=== PATIENT | female | born 1955 | race Caucasian/White ===

== ENCOUNTER 2017-07-22 07:29 | Inpatient (IN) | payer MEDICARE, OTHER, MEDICAID ==
[2017-07-22] MEDS ORDERED: Nitroglycerin 0.4 MG TAB (25 Tab Bottle) ONE (07:54)
[2017-07-22 08:29] LABS: #Basophils 0.2 thou/uL (0.0-0.2); #Eosinphils 0.1 thou/uL (0.0-0.7); #Lymphocytes 1.5 thou/uL (1.20-3.40); #Monocytes 0.3 thou/uL (0.11-0.59); #Neutrophils 6.4 thou/uL (1.40-6.50); %Basophils 2.2 % (0.0-1.0); %Eosinophils 1.3 % (0.0-10.0); %Lymphocytes 17.9 % (21.0-51.0); %Monocytes 3.8 % (0.0-10.0); %Neutrophils 74.8 % (42.0-75.0); Hemoglobin 15.4 g/dL (12.0-16.0); Mean Corpuscular HGB CONC 33.8 g/dL (32.0-36.0); Mean Corpuscular Hemoglobin 31.9 pg (27.0-31.0); Mean Corpuscular Volume 94.2 fl (81.0-99.0); Mean Platelet Volume 8.4 fL (7.4-10.4); Platelet Count 232 thou/uL (130-400); RBC Distribution Width 12.7 % (11.5-14.5); Red Blood Cell (RBC) Count 4.82 mill/uL (4.20-5.40); White Blood Cell (WBC) Count 8.6 thou/uL (4.8-10.8)
[2017-07-22 08:39] LABS: Prothrombin Time 13.3 SEC (12.0-14.7)
--- NOTE | 2017-07-22 08:41 | RAD ---
CHEST 1 VIEW: Date: 07/22/17 HISTORY: Emergency exam. COMPARISON: None. FINDINGS: Mild interstitial prominence in the lung bases. Heart size upper limits of normal. No pneumothorax. N o acute osseous abnormality. IMPRESSION: Mild pulmonary venous congestion. POS: [facility]
[2017-07-22 08:54] LABS: ALT (SGPT) 35 U/L (8-55); AST (SGOT) 25 U/L (5-34); Albumin 4.2 g/dL (3.4-4.8); Alkaline Phosphatase 73 U/L (40-150); Anion Gap 13 mmol/L (10-20); BUN (Urea Nitrogen) 10 mg/dL (9.8-20.1); Bilirubin, Total 0.5 mg/dL (0.2-1.2); Calc. Creatinine Clearance 0 mL/min (70-130); Calcium 9.1 mg/dL (7.8-10.44); Carbon Dioxide 23 mmol/L (23-31); Chloride 106 mmol/L (98-107); Estimated GFR-MDRD Greater than 90; Globulin 2.8 g/dL (2.4-3.5); Glucose 143 mg/dL (80-115); Magnesium 1.6 mg/dL (1.6-2.6); Potassium 3.6 mmol/L (3.5-5.1); Sodium 138 mmol/L (136-145)
[2017-07-22 08:59] LABS: CKMB 3.6 ng/mL (0-6.6)
[2017-07-22 09:01] LABS: Troponin I 0.414 ng/mL (< 0.028)
[2017-07-22] MEDS ORDERED: Enoxaparin Sodium 80 MG/0.8 ML SYRINGE ONE (09:18)
[2017-07-22] MEDS ORDERED: Nitroglycerin 0.4 MG TAB (25 Tab Bottle) PO PRN (11:11)
[2017-07-22] MEDS ORDERED: HYDROcodone/Acetaminophen 5/325 mg Tablet PO PRN ×2 (11:11→19:16)
--- NOTE | 2017-07-22 11:35 | HP ---
DATE OF ADMISSION: 07/22/2017 CHIEF COMPLAINT: Headache and jaw pain. HISTORY OF PRESENT ILLNESS: This is a 61-year-old white female with a known history of hypertension and history of chronic smoking. She presented with a complaint of headache and sinus like symptoms a ssociated with jaw pain, so she came to the ER and she noted to have normal EKG with some ST segment changes and had cardiac enzyme elevation to 0.414. Patient denies having any chest pain, no dizzines s, no sweating, no nausea, no vomiting, no diarrhea, and no constipation. She does mention that one of her grandchildren was sick and was having fever, but she noted no fever at home. Patient is a [facility] sm[facility], smokes 1 pack a day and she is trying to quit smoking because of the counseling from her daughter. She denies having any previous cardiac problems in the past. Because of her unusual pres entation and elevated troponin, Dr. Rosado was consulted from the ER. The patient is seen, she was jasper rt and oriented, did not appear to be in acute distress at this time. PAST MEDICAL HISTORY: 1. Hypertension. 2. COPD. PAST SURGICAL HISTORY: None. SOCIAL HISTORY: Patient does have a history of smoking, smokes 1 pack a day. No history of alcohol, no history of illicit drug use. FAMILY HISTORY: The patient is a foster child, but she does remember her mother has a history of vinayak g cancer and also with tuberculosis. REVIEW OF SYSTEMS: All 12 systems are reviewed with the patient thoroughly and found to be negative at this time. Systems reviewed HEENT, CVS, EXTRACTOR FILLER, and respiratory. The following complete review of s ystems was negative, unless otherwise mentioned in the HPI or below: Constitutional: Weight loss or gain, sense of well-being, ability to conduct usual activities, exerc ise tolerance. Skin/Breast: Rash, itching, changes in hair growth or loss, nail changes, breast lumps, tenderness, swelling, nipple discharge. Eyes: Vision, double vision, tearing, blind spots, pain. ENT/Mouth: Headaches (location, time of onset, duration, precipitating factors), vertigo, lightheade dness, injury. Vision, double vision, tearing, blind spots, pain, nose bleeding, colds, obstruction, discharge, dental difficulties, gingival bleeding, dentures, neck stiffness, pain, tenderness, masses in thyroid or other areas Cardiovascular: Precordial pain, substernal distress, palpitations, syncope, dyspnea on exertion, or thopnea, nocturnal paroxysmal dyspnea, edema, cyanosis, hypertension, heart murmurs, varicosities, ph lebitis, claudication. Respiratory: Pain, shortness of breath, wheezing, stridor, cough, hemoptysis, fever or night sweats Gastrointestinal: Poor appetite, dysphagia, indigestion, abdominal pain, heartburn, eructation, naus ea, vomiting, hematemesis, jaundice, constipation, or diarrhea, abnormal stools (mitra-colored, tarry, bloody, greasy, foul smelling), flatulence, hemorrhoids, recent changes in bowel habits. Genitourinary: Urgency, frequency, dysuria, nocturia, hematuria, polyuria, oliguria, unusual (or constanza nge in) color of urine, stones, hesitancy, change in size of stream, dribbling, acute retention or in continence, libido, potency. Musculoskeletal: Pain, swelling, redness or heat of muscles or joints, limitation, of motion, muscul ar weakness, atrophy, cramps. Neurologic/Psychiatric: Convulsions, paralyses, tremor, incoordination, paraesthesias, difficulties with memory of speech, sensory or motor disturbances, or muscular coordination (ataxia, tremor), emot ional problems, anxiety, depression, previous psychiatric care, unusual perceptions, hallucinations. Allergy/Immunologic: Skin rash, anemia, bleeding tendency, polydipsia, polyuria, intolerance to heat or cold. HOME MEDICATIONS: None. ALLERGIES: None. PHYSICAL EXAMINATION: VITAL SIGNS: Blood pressures are 150/88, respiratory rate 18, saturation is 98%. GENERAL: The patient is moderately built and moderately nourished. She does not appear to be in acu te distress. CARDIOVASCULAR: S1, S2 normal. No murmurs, no rubs, no gallops. LUNGS: Bilateral air entry was equal. No wheezing, no crackles. ABDOMEN: Soft, nontender, no guarding, no rebound tenderness. Bowel sounds normal. MUSCULOSKELETAL: No calf tenderness. No pedal edema. No joint tenderness, no joint swelling. SKIN: No cyanosis, no erythema, no rash, no pallor. CENTRAL NERVOUS SYSTEM: Cranial nerve examination II-XII intact. No focal deficits are noted. LYMPH: No evidence of any lymph nodes noted in the axillary node and cervical. NECK: No thyromegaly, no JVD. LABORATORY DATA AND IMAGING DATA: 1. WBC 8.6, hemoglobin 15.4, hematocrit is 45.4. 2. Sodium 130, potassium 3.6, chloride 106, bicarbonate 23, BUN 10, creatinine 0.66. 3. Troponin 0.414. 4. Chest x-ray was unremarkable. EKG was seen by me showing evidence of mild ST segment changes, bu t no classic ST segment elevations or depression. ASSESSMENT: 1. Acute coronary syndrome. 2. Non-ST elevation myocardial infarction. 3. Acute sinusitis, frontal. 4. Chronic smoker with known history of chronic obstructive pulmonary disease. PLAN: 1. Plan is to admit this patient and then closely monitor with serial troponins and Dr. Rosado has bee n consulted. We will follow with their recommendations. Plan to do a 2D echo to look for any eviden ce of wall motion abnormality. If troponins continue to trend down, probably we will do a nuclear st ress test tomorrow to rule out cardiac risk. 2. The patient has evidence of acute sinusitis with tenderness of her frontal sinuses. We will star t the patient on Augmentin 875 mg p.o. b.i.d. and Flonase on both nostrils. 3. Patient has a history of smoking. We will do a nicotine patch and job placement counselor the patient. I spent more than 15-20 minutes with the patient to quit smoking and patient agreed to take nicotine patch. 4. No evidence of any chronic obstructive pulmonary disease exacerbation noted. 5. Deep venous thrombosis prophylaxis with Lovenox 40 mg daily. I spent 70 minutes of this patient.
[2017-07-22 13:04] LABS: Troponin I 0.826 ng/mL (< 0.028)
[2017-07-22 14:56] LABS: Critical Call Chem Troponin I RESULT DECREASING; Troponin I 0.753 ng/mL (< 0.028)
[2017-07-22 16:09] VITALS: BMI 31.2
[2017-07-22] MEDS: Nicotine 14 MG PATCH TD SCH (18:12)
[2017-07-22] MEDS: Docusate 100 MG CAP PO SCH (20:50)
[2017-07-22] MEDS: Carvedilol 3.125 MG TAB PO SCH (20:51)
[2017-07-22] MEDS: Simvastatin 40 MG TAB PO SCH (20:51)
[2017-07-22] MEDS: Cefdinir 300 MG CAP PO SCH (20:51)
[2017-07-22] MEDS: traZODone HCl 150 MG TAB PO SCH (20:51)
[2017-07-22] MEDS: Famotidine/PF 20 mg/2ml Vial SLOW IVP SCH (20:51)
[2017-07-22] MEDS ORDERED: Amoxicillin/Potassium Clav 875 MG TAB PO SCH ×2 (21:00)
[2017-07-22] MEDS ORDERED: Lisinopril/Hydrochlorothiazide 20/25 mg Tablet PO SCH (21:00)
[2017-07-22] MEDS ORDERED: Ondansetron ODT 4 MG TAB PO PRN ×2 (21:15→21:17)
[2017-07-22] MEDS ORDERED: Ondansetron HCl/PF 4 MG/2 ML Vial IVP PRN ×2 (21:15→21:17)
[2017-07-22] MEDS ORDERED: ALPRAZolam 0.25 MG TAB PO PRN (21:17)
[2017-07-22] MEDS: Ibuprofen 200 MG TAB PO PRN (21:44)
--- NOTE | 2017-07-23 01:18 | CON ---
DATE OF CONSULTATION: 07/22/2017 PRIMARY CARE PHYSICIAN: Dr. Thompson. PRIMARY FIELD INSPECTOR: Desirae Rosado M.D. REFERRING PHYSICIAN: Rogelio Hull MD REASON FOR CARDIOLOGY CONSULTATION: Indeterminate troponin level and severe shortness of breath. HISTORY OF PRESENT ILLNESS: Ms. Spring is a 61-year-old female with a significant history of COPD secondary to smoking. The patient has had cold and sinus like symptoms for 2 days prior to this admission. Yesterday, she noticed that her breathing was more short-winded with slight lightheadedness. Her shortness of breath became worse towards the night. She could not even sleep on the recliner. This morning around 7:00, she and her family decided to present to the emergency department by car; however, she could not even walk to across the [place] due to dyspnea on exertion in very short distance. They decided to call EMS and the patient was transferred to [place] emergency department for further evaluation and treatment. Prior to this admission, she has some mild dyspnea on exertion with movement. However, she does not require home oxygen or any inhaler. During the initial Cardiology consult assessment, patient has complained of really short-winded; when she went to the bathroom, she almost passing out due to the shortness of breath. She also complained of noticeable discomfort to sternal area, which increased with deep breath. She also complained about chronic cough. She has not eaten well for a week because of the severe short-winded when she is eating. She has echocardiogram done in 11/2016 which shows EF of 60-65%, normal left ventricle structure and function suggests of grade I diastolic dysfunction. PAST MEDICAL HISTORY: 1. Chronic obstructive pulmonary disease. 2. Hypertension. 3. Right breast cancer with lumpectomy in 2015 with 6 weeks of radiation. 4. Rheumatoid arthritis in the right bilateral knee and hips. 5. Sciatic nerve. 6. Hepatitis A. 7. PTSD. 8. Hyperlipidemia. 9. Systolic murmur. 10. Diastolic dysfunction. 11. Urge incontinence. 12. GERD. PAST SURGICAL HISTORY: Again, right lumpectomy due to the right breast cancer in 2005. FAMILY HISTORY: She is a foster child at the age 5 or 6; however, she remembers that her mother has history of lung cancer and tuberculosis and also her great grandmother due to complications of diabetes. SOCIAL HISTORY: Patient is . Patient has a partner who lives with her , who is also a smoker. She has 2 children, her son is in the alive and well. Her daughter has a history of murmur. She is retired. She is disabled. She enjoys 3 cups of coffees a day and a glass of ice tea through the day. She smokes one pack a day until last night. She denied alcohol or illicit drug abuse. Today, she reports that she is going to quit smoking. ALLERGIES: She is allergic to PENICILLIN, CODEINE, ADHESIVE TAPE AND IVORY SOAP. HOME MEDICATIONS: Lisinopril/hydrochlorothiazide 20/25 mg 1 tablet once a day, Colace 100 mg daily as needed, vitamin D3 of 5000 units daily, minocycline 50 mg half a tablet to one tablet daily, Xanax 0.5 mg half tablet to one tablet twice a day, BuSpar 10 mg once a day, simvastatin 80 mg once a day, raloxifene 60 mg once a day, trazodone 150 mg once a day at night, Celexa 100 mg once a day. REVIEW OF SYSTEMS: The following complete review of systems was negative, unless otherwise mentioned in the HPI or below. Constitutional: Weight loss or gain, sense of wellbeing, ability to conduct usual activities, exercise tolerance. She started having shortness when short-winded about 2 days ago. Skin: Rash, itching, change in hair growth or loss, nail changes, breast lumps , tenderness, swelling, nipple discharge. Eyes: Vision change, double vision, tearing, blind spots, or pain. HEENT: Headache, vertigo, lightheadedness, nose bleeding, cold, obstruction, discharge. She wears total dentures, but denied gingival bleeding, neck stiffness, pain, tenderness, mass in thyroid or other areas. Cardiovascular: Precordial pain, substernal distress, palpitations, syncope, dyspnea on exertion, orthopnea, nocturnal dyspnea until 2 days ago. Negative for edema, cyanosis, claudication. Respiratory: Pain, wheezing, stridor, hemoptysis, fever or night sweats. Gastrointestinal: Positive for poor appetite due to severe shortness of breath , but negative for dysphagia, indigestion, abdominal pain, heartburn, eructation , nausea, vomiting, hematemesis, jaundice, constipation, or diarrhea, blood in stool. Genitourinary: Urgency, frequency, dysuria, nocturia, hematuria, polyuria, oliguria, unusual color of urine. Musculoskeletal: Pain, swelling, redness or heat of muscle or joint, limitation of motion, muscular weakness, atrophy, cramps. She is complaining of backache when she is leaning forward to the desk. Neurologic: Seizure conversion paralysis, tremor, incoordination, difficulty with memory of speech, sensory or motor disturbance or muscular coordination. Psychiatric: Emotional problem, anxiety, depression, previous psychiatric care, unusual perceptions, hallucinations. PHYSICAL EXAMINATION: VITAL SIGNS: Blood pressure 150/74, respiratory rate 22; heart rate 80, is in sinus rhythm. O2 satting 96% with 2 liters nasal cannula. GENERAL: Well-developed, well-nourished, in acute distress due to the severe shortness of breath. HEAD: Normocephalic, atraumatic. EYES: Extraocular muscle movement intact. ENT: Oral and nasal mucosa are moist without lesion. NECK: No JVD. Neck is supple and normal range of motion. LUNGS: Very tight bilaterally, but no wheezing, rales or rhonchi noted. CARDIOVASCULAR: Regular rate and rhythm, normal S1, S2. There are no S3 or S4. Unfortunately, I could not hear well murmurs, heaves, thrills, bruits or rubs due to severe heavy breathing. EXTREMITIES: There are 1+ pulses in the dorsal pedis and popliteal 2+ in bilateral posterior tibial present. Carotid pulse is present without bruit or thrill. No edema in the bilateral lower extremities. ABDOMEN: Soft and nontender or mass to palpate, nondistended. Bowel sounds are present. MUSCULOSKELETAL: Able to move all extremities. No calf tenderness. SKIN: Warm and dry. No skin rash, lesion or bruits noted. NEUROLOGIC: Alert, oriented x4, awake. Normal affect. Nonfocal. PSYCHIATRIC: Mood and affect are normal. Patient's 12-lead EKG shows sinus rhythm with heart rate of 91. Q-waves in lead 2, lead 3, and AVF is more than 2 mm, but not 3 mm. Chest x-ray shows mild pulmonary venous congestion. LABORATORY DATA: WBC 8.6, hemoglobin 15.4, hematocrit of 45.4, platelets 232. INR 1.0. Sodium 138, potassium 3.6, BUN 10, creatinine 0.66, glucose 143, magnesium 1.6, AST 25, ALT 35. CK-MB is 3.6. Troponin 0.414, 0.826, 0.753. BNP is 47. Her UA showed normal. ASSESSMENT AND PLAN: 1. Elevated troponin level which is possibly from severe dyspnea on exertion with chronic cough; however, due to the history of hypertension and current smoker, we would like to order a stress test to rule out any coronary artery disease. However, due to severe dyspnea of exertion, we would like to wait until her respiratory condition is stable. At this moment, the patient does not have any cardiac related symptoms such as numbness to the left upper extremity, nausea, diaphoresis. We would like to continue to monitor on the telemetry. Patient is on aspirin 325 mg, carvedilol 3.125 mg twice a day, Lovenox 40 mg subcutaneous and nitroglycerin as needed. 2. Acute chronic obstructive pulmonary disease exacerbation. Patient is on nebulizers; however, she is not on any steroids at this moment. Steroid can be beneficial for this patient for worsening shortness of breath. 3. Acute frontal sinusitis. Patient is on Omnicef 300 twice a day which is managed by her primary care doctor. 4. Current smoker. She is on a nicotine patch and she states that she will stop smoking. 5. Hyperlipidemia. Simvastatin 80 mg once a day will be started from [facility]. 4. Hypertension. I would like to start lisinopril/hydrochlorothiazide once a day for this patient. Thank you very much for allowing the Cardiology Service to participate in the care of this patient. We will follow along with the patient care team and make further evaluation as appropriate. SUMI
--- NOTE | 2017-07-23 02:10 | CON ---
DATE OF ADMISSION: 07/22/2017 DATE OF CONSULTATION: 07/22/2017 INDICATION FOR CONSULTATION: A 61-year-old female with abnormal cardiac enzymes. HISTORY OF PRESENT ILLNESS: This very unfortunate 61-year-old female who has had a long history of t obacco abuse, presented to the emergency room complaining of increasing coughing for the last couple of days. She has also had some fevers. During the evaluation, she was noted to have elevated cardia c enzymes. She denied any chest pain. She complained of lightheadedness. She was unable to even wa lk across the room due to significant shortness of breath. She has had an echocardiogram performed i n 11/2016 with a normal ejection fraction and no evidence of myocardial infarctions previously. Her cardiac enzymes at this time are still indeterminate and may be due to the severe significant shortne ss of breath as well as continued coughing. She does have a history of some diastolic dysfunction; h owever, but has chronic obstructive pulmonary disease. She also has a history of hypertension with h yperlipidemia obviously giving her risk factors for coronary artery disease. She also has obstructiv e sleep apnea. At this time, we will continue to monitor the cardiac enzymes. Should they continue to trend upwards or should she develop significant EKG changes, then we will consider a cardiac carisa terization, but at this time she is not a candidate to undergo the procedure due to severe coughing a nd overall ill situation at this time. Certainly, the elevated cardiac enzymes could be due to some hypoxia, also associated with severe coughing. She has been strongly advised to stop smoking altoget her. For the remainder of the history and physical, review of systems, past medical history and soci al history, please refer to the notes already dictated by my nurse practitioner, Kelin. IMPRESSION: 1. Acute bronchitis or acute chronic obstructive pulmonary disease exacerbation with increased cough ing and elevated cardiac enzymes. We will continue to follow this very carefully. We will try to ge t her coughing and acute respiratory status back down to her baseline. 2. Long history of tobacco abuse. She has been advised already to stop smoking. 3. Abnormal cardiac enzymes, which most likely is secondary to the continued coughing as well as ashley e tachycardia. This will be monitored very carefully. Should they continue upwards, then we may nee d to consider further evaluation. 4. Hyperlipidemia. She will need to be placed on statin medications. 5. Hypertension. This is under reasonable control at this time. We will be more than happy to cont inue to follow the patient with you during her hospital course.
[2017-07-23] MEDS: Diabetic Tussin 200 MG/10 ML UDCUP PO PRN ×3 (04:15→21:39)
[2017-07-23 05:35] LABS: #Eosinphils 0.2 thou/uL (0.0-0.7); #Lymphocytes 1.8 thou/uL (1.20-3.40); #Monocytes 0.8 thou/uL (0.11-0.59); #Neutrophils 5.8 thou/uL (1.40-6.50); %Basophils 0.3 % (0.0-1.0); %Lymphocytes 21.1 % (21.0-51.0); %Monocytes 9.5 % (0.0-10.0); %Neutrophils 67.1 % (42.0-75.0); Hemoglobin 15.3 g/dL (12.0-16.0); Mean Corpuscular HGB CONC 33.5 g/dL (32.0-36.0); Mean Corpuscular Hemoglobin 31.8 pg (27.0-31.0); Mean Corpuscular Volume 94.9 fl (81.0-99.0); Mean Platelet Volume 8.2 fL (7.4-10.4); Platelet Count 228 thou/uL (130-400); RBC Distribution Width 12.7 % (11.5-14.5); Red Blood Cell (RBC) Count 4.83 mill/uL (4.20-5.40); White Blood Cell (WBC) Count 8.7 thou/uL (4.8-10.8)
[2017-07-23 05:48] LABS: Anion Gap 15 mmol/L (10-20); BUN (Urea Nitrogen) 10 mg/dL (9.8-20.1); Calc. Creatinine Clearance 109 mL/min (70-130); Calcium 9.4 mg/dL (7.8-10.44); Carbon Dioxide 23 mmol/L (23-31); Cardiac Risk 4.5 (Less than 4.5); Chloride 105 mmol/L (98-107); Cholesterol 153 mg/dl (< 200 Desired); Estimated GFR-MDRD Greater than 90; Glucose 115 mg/dL (80-115); HDL Cholesterol 34 mg/dL (>60 Neg Risk); LDL Cholesterol, Calculated 93 mg/dL; Potassium 3.5 mmol/L (3.5-5.1); Sodium 139 mmol/L (136-145); Triglycerides 128 mg/dL (Less than 150)
[2017-07-23] MEDS: Ibuprofen 200 MG TAB PO PRN ×2 (06:47→22:34)
[2017-07-23] MEDS: Cefdinir 300 MG CAP PO SCH ×2 (10:31→21:40)
[2017-07-23] MEDS: Carvedilol 3.125 MG TAB PO SCH ×2 (10:31→21:42)
[2017-07-23] MEDS: Docusate 100 MG CAP PO SCH ×2 (10:31→21:40)
[2017-07-23] MEDS: Aspirin 325 MG TAB PO SCH (10:31)
[2017-07-23] MEDS: Lisinopril/Hydrochlorothiazide 20/25 mg Tablet PO SCH (10:32)
[2017-07-23] MEDS: Famotidine/PF 20 mg/2ml Vial SLOW IVP SCH ×2 (10:32→12:46)
[2017-07-23] MEDS: Nicotine 14 MG PATCH TD SCH (10:32)
[2017-07-23] MEDS: Enoxaparin Sodium 40 MG/0.4 ML SYRINGE SC SCH (10:33)
--- NOTE | 2017-07-23 12:50 | PDOC.PN ---
- Subjective Encounter Start Date: 07/23/17 Encounter Start Time: 10:15 Patient is seen today, alert and oriented. She continuos to feel tight in her lungs when she is breathing in. SOB on exertion. Family requesting a pulmonary due to her new diagnsosi of COPD. - Objective MAR Reviewed: Yes Vital Signs & Weight: Vital Signs (12 hours) Temp Pulse Resp BP BP Pulse Ox 07/23/17 10:32 99 128/78 07/23/17 08:15 98.6 F 99 22 H 128/78 93 L 07/23/17 08:11 94 L 07/23/17 08:02 90 24 H 07/23/17 03:59 97.9 F 96 22 H 143/62 H 94 L Weight Weight 164 lb 8 oz I&O: 07/22/17 07/23/17 07/24/17 06:59 06:59 06:59 Intake Total 240 Output Total 500 Balance -260 Result Diagrams: 07/23/17 05:18 07/23/17 05:18 Radiology Reviewed by me: Yes EKG Reviewed by me: Yes ( NO ST elaavtion) Phys Exam - Physical Examination HEENT: PERRLA, moist MMs Neck: no nodes, no JVD Respiratory: no rales, wheezing present Cardiovascular: RRR, no significant murmur Gastrointestinal: soft, non-tender Musculoskeletal: no edema, pulses present Neurological: non-focal, normal sensation Psychiatric: normal affect, A&O x 3 Skin: no rash, normal turgor Dx/Plan (1) Acute respiratory failure with hypoxia Code(s): J96.01 - ACUTE RESPIRATORY FAILURE WITH HYPOXIA Status: Acute Comment: Patient is on Neb treatments q 4hrs Duonebs, Will continue to monitor, Pt is on 3 l nasal canula now,. Improving with Nebs. pt remains SOB on walking. (2) COPD with acute exacerbation Code(s): J44.1 - CHRONIC OBSTRUCTIVE PULMONARY DISEASE W (ACUTE) EXACERBATION Status: Acute Comment: Pt is Not wheezing much, no sputum production, She is new Diagnosis for COPD due to her long Smoking history, will consult pulmonary. (3) NSTEMI (non-ST elevated myocardial infarction) Code(s): I21.4 - NON-ST ELEVATION (NSTEMI) MYOCARDIAL INFARCTION Status: Acute Comment: Cardiology Following, No intervention at this time, says elavated troponin from coughing? Pt is on Aspirn, BB, will c,osley Monitor follow recommedations, Echo normal, (4) Exertional dyspnea Code(s): R06.09 - OTHER FORMS OF DYSPNEA Status: Acute Comment: Likely from COPD or CAD, will closley Monitor, She will need Stress test before discharge. (5) Hypertension Code(s): I10 - ESSENTIAL (PRIMARY) HYPERTENSION Status: Acute (6) Post-nasal drip Code(s): R09.82 - POSTNASAL DRIP Status: Acute Comment: Will do Flonase, 1 spray once daily. - Plan cont current plan of care, plan discussed w/ family, continue antibiotics, PT/OT , social worker assistant, respiratory therapy, incentive spirometry, DVT proph w/ lovenox * . - Discharge Day Encounter end time: 10:45 Review of Systems - Review of Systems Constitutional: negative: fever, chills, sweats, weakness, malaise, other Eyes: negative: Pain, Vision Change, Conjunctivae Inflammation, Eyelid Inflammation, Redness, Other Respiratory: Cough, Shortness of Breath, SOB with Excertion, Wheezing Cardiovascular: negative: chest pain, palpitations, orthopnea, paroxysmal nocturnal dyspnea, edema, light headedness, other Gastrointestinal: negative: Nausea, Vomiting, Abdominal Pain, Diarrhea, Constipation, Melena, Hematochezia, Other Genitourinary: negative: Dysuria, Frequency, Incontinence, Hematuria, Retention , Other Musculoskeletal: negative: Neck Pain, Shoulder Pain, Arm Pain, Back Pain, Hand Pain, Leg Pain, Foot Pain, Other Skin: negative: Rash, Lesions, Frederick, Bruising, Other - Medications/Allergies Allergies/Adverse Reactions: Allergies Allergy/AdvReac Type Severity Reaction Status Date / Time adhesive tape Allergy Rash Verified 07/22/17 15:08 codeine Allergy Nausea/Vomi Verified 07/22/17 15:08 ting Penicillins Allergy Hives Verified 07/22/17 15:08 Medications: Current Medications Acetaminophen (Tylenol) 650 mg PO Q4H PRN PRN Reason: Headache/Fever or Pain Hydrocodone Bitart/Acetaminophen (Chester 5/325) 1 tab PO Q4H PRN PRN Reason: Moderate Pain (4-6) Albuterol/Ipratropium (Duoneb) 3 ml NEB [id number] JERICA Last Admin: 07/23/17 08:02 Dose: 3 ml Alprazolam (Xanax) 0.25 mg PO BIDPRN PRN PRN Reason: Anxiety Last Admin: 07/23/17 10:32 Dose: 0.25 mg Aspirin (Aspirin) 325 mg PO DAILY [facility] Last Admin: 07/23/17 10:31 Dose: 325 mg Carvedilol (Coreg) 3.125 mg PO BID [facility] Last Admin: 07/23/17 10:31 Dose: 3.125 mg Cefdinir (Omnicef) 300 mg PO BID [facility] Last Admin: 07/23/17 10:31 Dose: 300 mg Docusate Sodium (Colace) 100 mg PO BID [facility] Last Admin: 07/23/17 10:31 Dose: 100 mg Enoxaparin Sodium (Lovenox) 40 mg SC 0900 [facility] Last Admin: 07/23/17 10:33 Dose: 40 mg Famotidine (Pepcid) 20 mg SLOW IVP Q12HR [facility] Last Admin: 07/23/17 12:46 Dose: Not Given Guaifenesin (Robitussin Sf) 200 mg PO Q4H PRN PRN Reason: Cough Last Admin: 07/23/17 12:35 Dose: 200 mg Lisinopril/HCTZ (Prinizide 20-25) 1 tab PO DAILY [facility] Last Admin: 07/23/17 10:32 Dose: 1 tab Ibuprofen (Motrin) 400 mg PO Q6H PRN PRN Reason: Pain Stop: 07/24/17 21:21 Last Admin: 07/23/17 06:47 Dose: 400 mg Nicotine (Nicoderm Patch) 14 mg TD DAILY [facility] Last Admin: 07/23/17 10:32 Dose: 14 mg Nitroglycerin (Nitrostat) 0.4 mg PO Q5MIN PRN PRN Reason: Chest Pain Ondansetron HCl (Zofran Odt) 4 mg PO Q6H PRN PRN Reason: Nausea/Vomiting Ondansetron HCl (Zofran) 4 mg IVP Q6H PRN PRN Reason: Nausea/Vomiting Sertraline HCl (Zoloft) 100 mg PO HS [facility] Simvastatin (Zocor) 40 mg PO HS [facility] Last Admin: 07/22/17 20:51 Dose: 40 mg Trazodone HCl (Desyrel) 150 mg PO HS [facility] Last Admin: 07/22/17 20:51 Dose: 150 mg
[2017-07-23] MEDS ORDERED: Docusate 100 MG CAP PO PRN (12:54)
--- NOTE | 2017-07-23 15:11 | PDOC.CTH ---
<Kelin Doran - Last Filed: 07/23/17 15:13> Cardiology Progress Note - Subjective The pt seen and examined. No overnight events. No cardiac complaints. She still has to lean forward to breaths. She denied any cardiac complaints - Objective Vital Signs Temp Pulse Pulse Pulse Resp BP BP 07/23/17 14:17 96 28 H 07/23/17 11:30 98.4 F 98 20 07/23/17 10:32 99 128/78 07/23/17 08:50 104 H 107 H 145/92 H 07/23/17 08:15 98.6 F 99 22 H 07/23/17 08:11 07/23/17 08:02 90 24 H 07/23/17 03:59 97.9 F 96 22 H BP BP BP Pulse Ox 07/23/17 14:17 07/23/17 11:30 134/78 93 L 07/23/17 10:32 07/23/17 08:50 163/91 H 07/23/17 08:15 128/78 93 L 07/23/17 08:11 94 L 07/23/17 08:02 07/23/17 03:59 143/62 H 94 L Weight 164 lb 8 oz 07/22/17 07/23/17 07/24/17 06:59 06:59 06:59 Intake Total 240 Output Total 500 Balance -260 - Physical Examination General/Neuro: alert & oriented x3 Neck: no JVD present Lungs: other: (very diminished at bases) Heart: RRR Abdomen: soft Extremities: other: (No edmea) - Telemetry Telemetry Rhythm: SR - Labs Result Diagrams: 07/23/17 05:18 07/23/17 05:18 Troponin/CKMB CK-MB (CK-2) 3.6 ng/mL (0-6.6) 07/22/17 08:21 Troponin I 0.753 ng/mL (< 0.028) H* 07/22/17 14:21 - Assessment/Plan 1. Acute respiratory failure with hypoxia 2ndary to COPD exacerbation - Still breathing very hard; changed her Neb tx to Q 4hr from q6h as PCP's recommendation 2. Abn. CE - cont. monitor on tele; The pt will have cardiac workup when her resp. condition is stable 3. HTN - stable with current medication; 4. Hyperlipidemia - on Statin 5. Tobacco abuse - Smoking Cessation Education given to the pt and family MAR reviewed Review of Systems - Review of Systems Constitutional: reports: no symptoms reported EENTM: reports: no symptoms reported Respiratory: reports: see HPI Cardiac (ROS): reports: no symptoms reported ABD/GI: reports: no symptoms reported <Radha Rosado - Last Filed: 07/24/17 09:50> Cardiology Progress Note - Objective Vital Signs Temp Pulse Resp BP Pulse Ox 07/24/17 07:45 99.5 F 97 18 117/71 93 L 07/24/17 07:39 93 L 07/24/17 07:37 97 20 93 L 07/24/17 02:31 119 H 22 H 93 L 07/23/17 22:33 128 H 26 H 92 L Weight 164 lb 8 oz 07/23/17 07/24/17 07/25/17 06:59 06:59 06:59 Intake Total 240 1115 Output Total 500 100 Balance -260 1015 - Labs Result Diagrams: 07/23/17 05:18 07/23/17 05:18 Troponin/CKMB CK-MB (CK-2) 3.6 ng/mL (0-6.6) 07/22/17 08:21 Troponin I 0.753 ng/mL (< 0.028) H* 07/22/17 14:21 - Assessment/Plan Pt. seen and eval. by me. I agree with the A/P by the DIRECTIONAL DRILLER.She is breathing better this PM. When stable, I suggest a nuclear stress test.
[2017-07-23] MEDS ORDERED: Sodium Chloride 0.9% 10 ML ONE ×2 (15:29→18:32)
[2017-07-23] MEDS ORDERED: methylPREDNISolone Sod Succ/PF 125 MG/2 ML VIAL IVP SCH (15:30)
[2017-07-23] MEDS: Arformoterol 15 MCG/2 ML NEB NEB SCH (18:49)
[2017-07-23] MEDS: Budesonide 0.5 MG/2 ML NEB INH SCH (18:49)
[2017-07-23] MEDS ORDERED: traZODone HCl 150 MG TAB PO SCH (21:00)
--- NOTE | 2017-07-23 21:25 | CON ---
DATE OF CONSULTATION: 07/23/2017 CONSULTING PHYSICIAN: Dr. Hull from the [facility]. REASON FOR CONSULTATION: Shortness of breath. HISTORY OF PRESENT ILLNESS: This is a 61-year-old female, who presented to the hospital yesterday wi th a 2-day history of increasing shortness of breath. She also had a headache and jaw pain. The pat ient states that she has never really had shortness of breath prior to the last several days. She st ates that she had to quit smoking 2 days ago because of the increasing shortness of breath. She has smoked approximately 1 pack per day since age 14, giving her total pack year history of about 45. Kyung benedict has never been diagnosed with asthma or COPD in the past. She is able to provide her own history w ithout limitations. I also reviewed the records and the chart. PAST MEDICAL HISTORY: Hypertension. PAST SURGICAL HISTORY: None. SOCIAL HISTORY: Smoking history as outlined above. Does not consume alcohol, does not use illicit d rugs. Lives with her . FAMILY MEDICAL HISTORY: Remarkable for mother with lung cancer and tuberculosis. MEDICATIONS PRIOR TO ADMISSION: VESIcare, lisinopril/hydrochlorothiazide, Colace, vitamin D, minocyc line, Xanax, simvastatin, raloxifene, Desyrel and sertraline. ALLERGIES: ADHESIVE TAPE, CODEINE, and PENICILLIN. REVIEW OF SYSTEMS: Twelve point review of systems is otherwise negative except for the history of pr esent illness. PHYSICAL EXAMINATION: VITAL SIGNS: Temperature 98.4, pulse 96, respirations 28, O2 sat 93% on 2 liters, blood pressure 134 /78. HEENT: Pupils react. Sclerae are anicteric. Pharynx is clear. NECK: No JVD. LUNGS: She has diminished breath sounds globally throughout. A few crackles in both bases. CARDIOVASCULAR: S1, S2 regular, without murmur. ABDOMEN: Soft and nontender. EXTREMITIES: No edema. IMAGING: Chest x-ray shows blunting of both diaphragmatic angles basically clear lung mendoza with hy perinflation. LABORATORY DATA: White blood cell count 8.7, hematocrit 45.9, platelet count 228. INR is 1.0. Sodi um 139, potassium 3.5, chloride 105, CO2 of 23, BUN 10, creatinine 0.6, glucose 115. Troponin is 0.7 53. BNP is 47. ASSESSMENT: 1. Chronic obstructive pulmonary disease with exacerbation. 2. Tobacco abuse. 3. Anxiety. RECOMMENDATIONS: 1. Start IV steroids. 2. Nebulization treatments every 4 hours. 3. Start Brovana and Pulmicort. 4. Continue the antibiotics. 5. PFTs when practical. Fifty minutes of total time spent performing the consultation of those 50 minutes greater than 50% of the time was spent in counseling and coordination of care.
[2017-07-23] MEDS: Famotidine 20 MG TAB PO SCH (21:40)
[2017-07-23] MEDS: TROSPIUM 20 MG TABLET PO SCH (21:41)
[2017-07-23] MEDS: traZODone HCl 150 MG TAB PO SCH (21:41)
[2017-07-23] MEDS: Simvastatin 40 MG TAB PO SCH (21:41)
[2017-07-23] MEDS: ALPRAZolam 0.5 MG TAB PO PRN (21:45)
[2017-07-24] MEDS: Diabetic Tussin 200 MG/10 ML UDCUP PO PRN ×3 (01:35→14:31)
[2017-07-24] MEDS: Budesonide 0.5 MG/2 ML NEB INH SCH ×2 (07:39→19:36)
[2017-07-24] MEDS: Arformoterol 15 MCG/2 ML NEB NEB SCH ×2 (07:39→19:38)
[2017-07-24] MEDS: Cefdinir 300 MG CAP PO SCH ×2 (08:54→23:14)
[2017-07-24] MEDS: Carvedilol 3.125 MG TAB PO SCH ×2 (08:54→23:14)
[2017-07-24] MEDS: Aspirin 325 MG TAB PO SCH (08:54)
[2017-07-24] MEDS: Docusate 100 MG CAP PO SCH ×2 (08:55→23:14)
[2017-07-24] MEDS: Fluticasone Propionate Nasal Spray 16 gm Bottle NASAL SCH (08:56)
[2017-07-24] MEDS: Enoxaparin Sodium 40 MG/0.4 ML SYRINGE SC SCH (08:56)
[2017-07-24] MEDS: Lisinopril/Hydrochlorothiazide 20/25 mg Tablet PO SCH (08:57)
[2017-07-24] MEDS: Nicotine 14 MG PATCH TD SCH (08:57)
[2017-07-24] MEDS: TROSPIUM 20 MG TABLET PO SCH ×2 (08:58→23:15)
[2017-07-24] MEDS ORDERED: Lisinopril/Hydrochlorothiazide 20/25 mg Tablet PO SCH (09:00)
--- NOTE | 2017-07-24 10:24 | PRG ---
DATE OF SERVICE: 07/24/2017 SUBJECTIVE: The patient feels better after getting steroids last night. OBJECTIVE: VITAL SIGNS: Temperature 99.5, pulse 97, respiration was 93% on 2 liters, blood pressure 117/71. HEENT: Unremarkable. NECK: No JVD. LUNGS: Clear but distant breath sounds. CARDIAC: S1 and S2 regular. ABDOMEN: Soft. EXTREMITIES: No edema. LABORATORY DATA: No new labs were obtained today. ASSESSMENT: Chronic obstructive pulmonary disease with exacerbation. PLAN: 1. Continue steroids and nebulization treatments. 2. PFT as soon as practical. 3. Increase activity. 4. Hopefully home by tomorrow.
--- NOTE | 2017-07-24 12:15 | PDOC.PN ---
- Subjective Encounter Start Date: 07/24/17 Encounter Start Time: 09:00 -: old records requested/rev Pt seen and examined, chart reviewed in its entirety, this is my first visit with this patient pt states her breathing is better, no F/C, no n/V/d/C, no CP, mild HDZ. wants to get up and walk around, i have no problem. Offered PT eval, but family wants to see how she does first. Seen By pulm (Dr Bains) appreciate his assistance. On Duonebs q4, Brovana, Pulmicort, solumedrol, omnicef. Improving. NO prior COPD diagnosis. on nicotine patch. Will need home nebulizer, wean o2 as tolerated, possible at home, and outpatient pulm followup 10 point ROS performed and neg for all systems except as above - Objective Resuscitation Status: full MAR Reviewed: Yes Vital Signs & Weight: Vital Signs (12 hours) Temp Pulse Resp BP BP Pulse Ox 07/24/17 11:52 89 20 114/64 95 07/24/17 10:36 101 H 20 93 L 07/24/17 08:57 97 117/71 07/24/17 07:46 99.5 F 97 18 93 L 07/24/17 07:45 99.5 F 97 18 117/71 93 L 07/24/17 07:39 93 L 07/24/17 07:37 97 20 93 L 07/24/17 02:31 119 H 22 H 93 L Weight Weight 164 lb 8 oz I&O: 07/23/17 07/24/17 07/25/17 06:59 06:59 06:59 Intake Total 240 1115 Output Total 500 100 Balance -260 1015 Result Diagrams: 07/23/17 05:18 07/23/17 05:18 Radiology Reviewed by me: Yes EKG Reviewed by me: Yes Phys Exam - Physical Examination Constitutional: NAD HEENT: PERRLA, moist MMs, sclera anicteric, oral pharynx no lesions Neck: no nodes, no JVD, supple, full ROM Respiratory: no rales, no rhonchi prolonged expiration, expiratory wheezes, poor air movement bilat Cardiovascular: no rub tachy, regular, no murmurs Gastrointestinal: soft, non-tender, no distention, positive bowel sounds Musculoskeletal: pulses present, edema present Neurological: non-focal, normal sensation, moves all 4 limbs Lymphatic: no nodes Psychiatric: normal affect, A&O x 3 Skin: no rash, normal turgor, cap refill <2 seconds Dx/Plan (1) Demand ischemia Code(s): I24.8 - OTHER FORMS OF ACUTE ISCHEMIC HEART DISEASE Status: Acute (2) Chronic diastolic CHF (congestive heart failure) Code(s): I50.32 - CHRONIC DIASTOLIC (CONGESTIVE) HEART FAILURE Status: Chronic (3) Acute respiratory failure with hypoxia Code(s): J96.01 - ACUTE RESPIRATORY FAILURE WITH HYPOXIA Status: Acute Comment: Patient is on Neb treatments q 4hrs Duonebs, Will continue to monitor, continue nebs, brovana, pulmicort, IV steroids (to po when okay with pulm) and wean O2 as tolerated (4) COPD with acute exacerbation Code(s): J44.1 - CHRONIC OBSTRUCTIVE PULMONARY DISEASE W (ACUTE) EXACERBATION Status: Acute Comment: New diagnosis, Pulm following. will need deputy director follow up - Plan cont current plan of care, plan discussed w/ family, continue antibiotics, PT/OT , respiratory therapy, out of bed/ambulate, DVT proph w/lovenox * .
--- NOTE | 2017-07-24 12:52 | PDOC.CTH ---
<Kelin Doran - Last Filed: 07/24/17 12:50> Cardiology Progress Note - Subjective The pt seen and examined. No overnight events. No cardiac complaints. She stated she can breath much better after she started taking steroid. - Objective Vital Signs Temp Pulse Resp BP BP Pulse Ox 07/24/17 11:52 89 20 114/64 95 07/24/17 10:36 101 H 20 93 L 07/24/17 08:57 97 117/71 07/24/17 07:46 99.5 F 97 18 93 L 07/24/17 07:45 99.5 F 97 18 117/71 93 L 07/24/17 07:39 93 L 07/24/17 07:37 97 20 93 L 07/24/17 02:31 119 H 22 H 93 L Weight 164 lb 8 oz 07/23/17 07/24/17 07/25/17 06:59 06:59 06:59 Intake Total 240 1115 Output Total 500 100 Balance -260 1015 - Physical Examination General/Neuro: alert & oriented x3 Neck: no JVD present Lungs: other: (wheezing) Heart: RRR Abdomen: soft Extremities: other: (No edema) - Telemetry Telemetry Rhythm: SR - Labs Result Diagrams: 07/23/17 05:18 07/23/17 05:18 Troponin/CKMB CK-MB (CK-2) 3.6 ng/mL (0-6.6) 07/22/17 08:21 Troponin I 0.753 ng/mL (< 0.028) H* 07/22/17 14:21 - Assessment/Plan 1. Acute respiratory failure with hypoxia 2ndary to COPD exacerbation - stable with steroid and breathing tx; managed by Floor Scrubber 2. Chronic diastolic HF - Echo on 07/22/17 showed EF 60-65%, grade I diastolic dysfunction, and mild MR; stable; cont. monitor 3. HTN - stable with current medication; 4. Hyperlipidemia - on Statin 5. Abn. Juan - cont. monitor on tele; The pt will have cardiac workup, such as stress test, when her resp. condition is stable Tobacco abuse - Smoking Cessation Education given to the pt and family MAR reviewed Review of Systems - Review of Systems Constitutional: reports: no symptoms reported EENTM: reports: no symptoms reported Respiratory: reports: see HPI Cardiac (ROS): reports: no symptoms reported ABD/GI: reports: no symptoms reported : reports: no symptoms reported <Radha Rosado - Last Filed: 07/24/17 15:50> Cardiology Progress Note - Objective Vital Signs Temp Pulse Pulse Resp BP BP BP 07/24/17 11:52 89 20 114/64 07/24/17 10:36 101 H 20 07/24/17 10:15 93 125/78 07/24/17 08:57 97 117/71 07/24/17 07:46 99.5 F 97 18 07/24/17 07:45 99.5 F 97 18 117/71 07/24/17 07:39 07/24/17 07:37 97 20 Pulse Ox 07/24/17 11:52 95 07/24/17 10:36 93 L 07/24/17 10:15 07/24/17 08:57 07/24/17 07:46 93 L 07/24/17 07:45 93 L 07/24/17 07:39 93 L 07/24/17 07:37 93 L Weight 164 lb 8 oz 07/23/17 07/24/17 07/25/17 06:59 06:59 06:59 Intake Total 240 1115 Output Total 500 100 Balance -260 1015 - Labs Result Diagrams: 07/23/17 05:18 07/23/17 05:18 Troponin/CKMB CK-MB (CK-2) 3.6 ng/mL (0-6.6) 07/22/17 08:21 Troponin I 0.753 ng/mL (< 0.028) H* 07/22/17 14:21 - Assessment/Plan Pt. seen and eval. doing better. Few wheezes. Plan for NM stress test tomorrow.
--- NOTE | 2017-07-24 13:02 | PQF ---
CLINICAL DOCUMENTATION IMPROVEMENT CLARIFICATION FORM: ICD-10 Updated PLEASE DO AN ADDENDUM TO THE PROGRESS NOTE WITH ANY DOCUMENTATION UPDATES OR ADDITIONS AND CARRY THROUGH TO DC SUMMARY. THANK YOU. DATE: 07/24/17 ATTN: DR. GONGORA Please exercise your independent, professional judgment in responding to the clarification form. Clinical indicators are provided on the bottom of this form for your review Please check appropriate box(s) to clarify if the following diagnosis has been ruled in our ruled out: NSTEMI [ ] Ruled in diagnosis [ ] Continue to treat [ ] Resolved [ ] Ruled out diagnosis [ ] Other diagnosis [ ] Unable to determine In addition, please specify: Present on Admission (POA): [ ] Yes [ ] No [ ] Unable to determine For continuity of documentation, please document condition throughout progress notes and discharge summary. Thank You. CLINICAL INDICATORS - SIGNS / SYMPTOMS / LABS H&P 07/22: "NON-ST ELEVATION MYOCARDIAL INFARCTION" CONSULTATION NOTE 07/22: "ELEVATED TROPONIN LEVEL WHICH IS POSSIBLY FROM SEVERE DYSPNEA ON EXERTION WITH CHRONIC COUGH; HOWEVER, DUE TO THE HISTORY OF HYPERTENSION AND CURRENT SMOKER, WE WOULD LIKE TO ORDER A STRESS TEST TO RULE OUT ANY CORONARY ARTERY DISEASE." TROPONIN 0.414 / 0.826 / 0.753 RISKS: H/O HTN H/O COPD TREATMENT: TELEMETRY MONITORING CARDIOLOGY CONSULT EKG ASPIRIN (ER-PRESENT) LOVENOX (ER-PRESENT) SAP Quality Assurance Advisor Crystal Reports Winform Viewer (This form is maintained as a part of the permanent medical record) 2014 [facility] [employer] [facility]. All Rights Reserved [email or web address] [email or web address] Office: [phone] adressed in PN 07/25/2017. Will update as info returns MTDD
[2017-07-24] MEDS: Ibuprofen 200 MG TAB PO PRN (14:32)
[2017-07-24 19:51] LABS: Anion Gap 17 mmol/L (10-20); BUN (Urea Nitrogen) 37 mg/dL (9.8-20.1); Calc. Creatinine Clearance 83 mL/min (70-130); Calcium 10.6 mg/dL (7.8-10.44); Carbon Dioxide 25 mmol/L (23-31); Chloride 99 mmol/L (98-107); Estimated GFR-MDRD 69; Glucose 147 mg/dL (80-115); Magnesium 1.9 mg/dL (1.6-2.6); Potassium 3.5 mmol/L (3.5-5.1); Sodium 137 mmol/L (136-145)
[2017-07-24] MEDS: Famotidine 20 MG TAB PO SCH (23:15)
[2017-07-24] MEDS: Simvastatin 40 MG TAB PO SCH (23:15)
[2017-07-24] MEDS: traZODone HCl 150 MG TAB PO SCH (23:15)
[2017-07-25 05:35] LABS: #Basophils 0.1 thou/uL (0.0-0.2); #Lymphocytes 2.2 thou/uL (1.20-3.40); #Monocytes 0.7 thou/uL (0.11-0.59); #Neutrophils 10.2 thou/uL (1.40-6.50); %Basophils 0.4 % (0.0-1.0); %Eosinophils 0.1 % (0.0-10.0); %Lymphocytes 16.8 % (21.0-51.0); %Monocytes 5.3 % (0.0-10.0); %Neutrophils 77.4 % (42.0-75.0); Hemoglobin 14.9 g/dL (12.0-16.0); Mean Corpuscular HGB CONC 33.9 g/dL (32.0-36.0); Mean Corpuscular Hemoglobin 31.9 pg (27.0-31.0); Platelet Count 249 thou/uL (130-400); RBC Distribution Width 12.6 % (11.5-14.5); Red Blood Cell (RBC) Count 4.67 mill/uL (4.20-5.40); White Blood Cell (WBC) Count 13.1 thou/uL (4.8-10.8)
[2017-07-25 05:47] LABS: Anion Gap 15 mmol/L (10-20); BUN (Urea Nitrogen) 36 mg/dL (9.8-20.1); Calc. Creatinine Clearance 93 mL/min (70-130); Calcium 10.1 mg/dL (7.8-10.44); Carbon Dioxide 23 mmol/L (23-31); Chloride 102 mmol/L (98-107); Estimated GFR-MDRD 79; Glucose 141 mg/dL (80-115); Potassium 3.6 mmol/L (3.5-5.1); Sodium 136 mmol/L (136-145)
[2017-07-25] MEDS: Diabetic Tussin 200 MG/10 ML UDCUP PO PRN ×3 (06:15→21:26)
[2017-07-25] MEDS: Budesonide 0.5 MG/2 ML NEB INH SCH ×2 (08:08→18:47)
[2017-07-25] MEDS: Arformoterol 15 MCG/2 ML NEB NEB SCH ×2 (08:25→18:47)
--- NOTE | 2017-07-25 08:52 | PDOC.CTH ---
<Kelin Doran - Last Filed: 07/25/17 08:49> Cardiology Progress Note - Subjective the pt seen and examined. No overnight events. No cardiac complaints. She reported that she could not be in spine position for more than 10 mins due to severe SOB. - Objective Vital Signs Temp Pulse Resp BP Pulse Ox 07/25/17 04:57 93 L 07/25/17 04:38 94 L 07/25/17 04:00 98.8 F 78 18 113/58 L 94 L 07/25/17 01:50 98 16 94 L 07/24/17 23:29 99 16 95 Weight 162 lb 8 oz 07/24/17 07/25/17 07/26/17 06:59 06:59 06:59 Intake Total 1115 1378 Output Total 100 400 Balance 1015 978 - Physical Examination General/Neuro: alert & oriented x3 Neck: no JVD present Lungs: other: (wheezing) Heart: RRR Abdomen: soft Extremities: other: (No edema) - Telemetry Telemetry Rhythm: SR 80-90s - Labs Result Diagrams: 07/25/17 04:26 07/25/17 04:26 Troponin/CKMB CK-MB (CK-2) 3.6 ng/mL (0-6.6) 07/22/17 08:21 Troponin I 0.753 ng/mL (< 0.028) H* 07/22/17 14:21 - Assessment/Plan 1. Acute respiratory failure with hypoxia 2ndary to COPD exacerbation - stable with steroid and breathing tx; however, she and her family reported that she could not lay on spine position for more than 10 mins last night due to severe SOB; at this moment, she still could not lay flat; managed by Liquefied Petroleum Gasfitter; 2. Chronic diastolic HF - Echo on 07/22/17 showed EF 60-65%, grade I diastolic dysfunction, and mild MR; stable; cont. monitor 3. HTN - stable with current medication; 4. Hyperlipidemia - on Statin 5. Abn. Juan - cont. monitor on tele; Postponed NM stress test to possible tomorrow due to severe SOB when she was in spine position. Tobacco abuse - Smoking Cessation Education given to the pt and family MAR reviewed * Postponed NM stress test to possible tomorrow due to severe SOB when she was in spine position. Review of Systems - Review of Systems Constitutional: reports: no symptoms reported EENTM: reports: no symptoms reported Respiratory: reports: see HPI Cardiac (ROS): reports: no symptoms reported ABD/GI: reports: no symptoms reported : reports: no symptoms reported Musculoskeletal: reports: no symptoms reported <Radha Rosado - Last Filed: 07/25/17 17:24> Cardiology Progress Note - Objective Vital Signs Temp Pulse Pulse Resp BP BP BP 07/25/17 16:02 98.6 F 88 12 07/25/17 14:19 81 20 07/25/17 13:26 92 112/63 101/66 07/25/17 12:08 98.6 F 87 16 07/25/17 09:36 71 123/76 07/25/17 09:00 98.5 F 71 16 07/25/17 08:55 98.5 F 71 16 BP Pulse Ox Pulse Ox Pulse Ox 07/25/17 16:02 118/77 92 L 07/25/17 14:19 07/25/17 13:26 93 L 93 L 07/25/17 12:08 101/66 92 L 07/25/17 09:36 07/25/17 09:00 92 L 07/25/17 08:55 123/64 92 L Weight 162 lb 8 oz 07/24/17 07/25/17 07/26/17 06:59 06:59 06:59 Intake Total 1115 1378 Output Total 100 400 Balance 1015 978 - Labs Result Diagrams: 07/25/17 04:26 07/25/17 04:26 Troponin/CKMB CK-MB (CK-2) 3.6 ng/mL (0-6.6) 07/22/17 08:21 Troponin I 0.753 ng/mL (< 0.028) H* 07/22/17 14:21 - Assessment/Plan Pt. seen and eval. by me. I agree with the A/P by the CONVERTIBLE POWER SHOVEL OPERATOR. When she is able to lie flat then she will need a stress test.
[2017-07-25] MEDS: Aspirin 325 MG TAB PO SCH (09:34)
[2017-07-25] MEDS: Cefdinir 300 MG CAP PO SCH ×2 (09:34→21:24)
[2017-07-25] MEDS: Carvedilol 3.125 MG TAB PO SCH ×2 (09:34→21:24)
[2017-07-25] MEDS: Enoxaparin Sodium 40 MG/0.4 ML SYRINGE SC SCH (09:35)
[2017-07-25] MEDS: Docusate 100 MG CAP PO SCH ×2 (09:35→21:25)
[2017-07-25] MEDS: Fluticasone Propionate Nasal Spray 16 gm Bottle NASAL SCH (09:36)
[2017-07-25] MEDS: Lisinopril/Hydrochlorothiazide 20/25 mg Tablet PO SCH (09:36)
[2017-07-25] MEDS: Nicotine 14 MG PATCH TD SCH (09:37)
[2017-07-25] MEDS: ALPRAZolam 0.5 MG TAB PO PRN ×2 (09:38→21:26)
[2017-07-25] MEDS: Acetaminophen 325 MG TAB PO PRN (09:38)
[2017-07-25] MEDS: TROSPIUM 20 MG TABLET PO SCH ×2 (09:57→21:25)
--- NOTE | 2017-07-25 11:12 | PRG ---
DATE OF SERVICE: 07/25/2017 SUBJECTIVE: The patient feels much better, had no acute complaints. PHYSICAL EXAMINATION: VITAL SIGNS: Temperature 98.5, pulse 71, blood pressure 123/76, O2 sat 92% on 2 liters. HEENT: Unremarkable. NECK: No JVD. LUNGS: A few expiratory wheezes. CARDIAC: S1 and S2 regular. ABDOMEN: Soft. EXTREMITIES: No edema. LABORATORY DATA: White blood cell count 13, hematocrit 44, platelet count 249. Sodium 136, potassiu m 3.6, chloride 102, CO2 of 23, BUN 36, creatinine 0.7, glucose 141. ASSESSMENT: 1. Chronic obstructive pulmonary disease with exacerbation. 2. Acute hypoxic respiratory failure. PLAN: 1. Continue the nebulization treatments. 2. Reduce the steroid dose. 3. She will need home oxygen evaluation prior to discharge. 4. PFT is planned for later today. She also says a stress test is planned for the near future.
--- NOTE | 2017-07-25 11:24 | PDOC.PN ---
- Subjective Encounter Start Date: 07/25/17 Encounter Start Time: 08:20 Pt feeling better and breathing better. Pulm and cardiology following. Nuc Stress and PFTs today planned. Pulm recommendations reviewed. No F/C, no N/V/D/C, no CP, less and clearer sputum production. 10 point ROS performed and neg for all systems except as per hPI - Objective Resuscitation Status: full MAR Reviewed: Yes Vital Signs & Weight: Vital Signs (12 hours) Temp Pulse Resp BP BP BP Pulse Ox 07/25/17 09:36 71 123/76 07/25/17 09:00 98.5 F 71 16 92 L 07/25/17 08:55 98.5 F 71 16 123/64 92 L 07/25/17 04:57 93 L 07/25/17 04:38 94 L 07/25/17 04:00 98.8 F 78 18 113/58 L 94 L 07/25/17 01:50 98 16 94 L 07/24/17 23:29 99 16 95 Weight Weight 162 lb 8 oz I&O: 07/24/17 07/25/17 07/26/17 06:59 06:59 06:59 Intake Total 1115 1378 Output Total 100 400 Balance 1015 978 Result Diagrams: 07/25/17 04:26 07/25/17 04:26 Additional Labs: Accuchecks 07/25/17 06:35 POC Glucose 153 H Radiology Reviewed by me: Yes EKG Reviewed by me: Yes Phys Exam - Physical Examination Constitutional: NAD HEENT: PERRLA, moist MMs, sclera anicteric, oral pharynx no lesions Neck: no nodes, no JVD, supple, full ROM Respiratory: no rales, no rhonchi slightly prolong exp phase, end exp wheezes, improved air movement symmmetrical chest excursion Cardiovascular: RRR, no significant murmur, no rub Gastrointestinal: soft, non-tender, no distention, positive bowel sounds Musculoskeletal: pulses present, edema present Neurological: non-focal, normal sensation, moves all 4 limbs Lymphatic: no nodes Psychiatric: normal affect, A&O x 3 Skin: no rash, normal turgor, cap refill <2 seconds Dx/Plan (1) Demand ischemia Code(s): I24.8 - OTHER FORMS OF ACUTE ISCHEMIC HEART DISEASE Status: Acute Comment: no evidence currently of NSTEMI (2) Chronic diastolic CHF (congestive heart failure) Code(s): I50.32 - CHRONIC DIASTOLIC (CONGESTIVE) HEART FAILURE Status: Chronic (3) Acute respiratory failure with hypoxia Code(s): J96.01 - ACUTE RESPIRATORY FAILURE WITH HYPOXIA Status: Acute Comment: Patient is on Neb treatments q 4hrs Duonebs, Will continue to monitor, continue nebs, brovana, pulmicort, IV steroids (to po when okay with pulm) and wean O2 as tolerated. May need home O2 on discharge short term. (4) COPD with acute exacerbation Code(s): J44.1 - CHRONIC OBSTRUCTIVE PULMONARY DISEASE W (ACUTE) EXACERBATION Status: Acute Comment: New diagnosis, Pulm following. will need extermination supervisor follow up - Plan cont current plan of care, plan discussed w/ family, continue antibiotics, PT/OT , respiratory therapy, out of bed/ambulate, DVT proph w/lovenox * .
[2017-07-25] MEDS: traZODone HCl 150 MG TAB PO SCH (21:25)
[2017-07-25] MEDS: Famotidine 20 MG TAB PO SCH (21:25)
[2017-07-25] MEDS: Simvastatin 40 MG TAB PO SCH (21:25)
[2017-07-26 04:59] LABS: #Lymphocytes 2.8 thou/uL (1.20-3.40); #Monocytes 0.8 thou/uL (0.11-0.59); #Neutrophils 8.7 thou/uL (1.40-6.50); %Basophils 0.4 % (0.0-1.0); %Eosinophils 0.2 % (0.0-10.0); %Lymphocytes 22.8 % (21.0-51.0); %Monocytes 6.2 % (0.0-10.0); %Neutrophils 70.4 % (42.0-75.0); Hemoglobin 14.5 g/dL (12.0-16.0); Mean Corpuscular HGB CONC 33.4 g/dL (32.0-36.0); Mean Corpuscular Hemoglobin 31.5 pg (27.0-31.0); Mean Corpuscular Volume 94.5 fl (81.0-99.0); Mean Platelet Volume 8.5 fL (7.4-10.4); Platelet Count 262 thou/uL (130-400); RBC Distribution Width 12.6 % (11.5-14.5); Red Blood Cell (RBC) Count 4.59 mill/uL (4.20-5.40); White Blood Cell (WBC) Count 12.4 thou/uL (4.8-10.8)
[2017-07-26 05:10] LABS: Anion Gap 14 mmol/L (10-20); BUN (Urea Nitrogen) 38 mg/dL (9.8-20.1); Calc. Creatinine Clearance 90 mL/min (70-130); Calcium 9.5 mg/dL (7.8-10.44); Carbon Dioxide 28 mmol/L (23-31); Chloride 100 mmol/L (98-107); Estimated GFR-MDRD 77; Glucose 122 mg/dL (80-115); Magnesium 1.9 mg/dL (1.6-2.6); Sodium 138 mmol/L (136-145)
[2017-07-26] MEDS: Diabetic Tussin 200 MG/10 ML UDCUP PO PRN ×3 (06:15→18:35)
[2017-07-26] MEDS: Arformoterol 15 MCG/2 ML NEB NEB SCH (06:41)
[2017-07-26] MEDS: Budesonide 0.5 MG/2 ML NEB INH SCH (06:44)
--- NOTE | 2017-07-26 09:14 | PDOC.PULPN ---
Progress Note: Subj/Obj - Subjective Date: 07/26/17 Time: 09:12 Narrative: feels better - ROS All systems: reviewed and no additional remarkable complaints except as stated - Objective Allergies/Adverse Reactions: Allergies Allergy/AdvReac Type Severity Reaction Status Date / Time adhesive tape Allergy Rash Verified 07/22/17 15:08 codeine Allergy Nausea/Vomi Verified 07/22/17 15:08 ting Penicillins Allergy Hives Verified 07/22/17 15:08 Medications: Current Medications Acetaminophen (Tylenol) 650 mg PO Q4H PRN PRN Reason: Headache/Fever or Pain Last Admin: 07/25/17 09:38 Dose: 650 mg Hydrocodone Bitart/Acetaminophen (Randolph 5/325) 1 tab PO Q4H PRN PRN Reason: Moderate Pain (4-6) Albuterol/Ipratropium (Duoneb) 3 ml NEB [id number] [facility] Last Admin: 07/26/17 06:44 Dose: 3 ml Alprazolam (Xanax) 0.5 mg PO BID PRN PRN Reason: Anxiety Last Admin: 07/25/17 21:26 Dose: 0.5 mg Arformoterol Tartrate (Brovana) 15 mcg NEB BID-RT [facility] Last Admin: 07/26/17 06:41 Dose: 15 mcg Aspirin (Aspirin) 325 mg PO DAILY [facility] Last Admin: 07/25/17 09:34 Dose: 325 mg Budesonide (Pulmicort Neb Solution) 0.5 mg INH BID-RT [facility] Last Admin: 07/26/17 06:44 Dose: 0.5 mg Carvedilol (Coreg) 3.125 mg PO BID [facility] Last Admin: 07/25/17 21:24 Dose: 3.125 mg Cefdinir (Omnicef) 300 mg PO BID [facility] Last Admin: 07/25/17 21:24 Dose: 300 mg Cholecalciferol (Vitamin D3) 5,000 units PO DAILY [facility] Last Admin: 07/25/17 09:35 Dose: 5,000 units Docusate Sodium (Colace) 100 mg PO BID [facility] Last Admin: 07/25/17 21:25 Dose: 100 mg Docusate Sodium (Colace) 100 mg PO DAILY PRN PRN Reason: Constipation Enoxaparin Sodium (Lovenox) 40 mg SC 0900 [facility] Last Admin: 07/25/17 09:35 Dose: 40 mg Famotidine (Pepcid) 20 mg PO 2100 [facility] Last Admin: 07/25/17 21:25 Dose: 20 mg Fluticasone Propionate (Flonase Nasal [place]) 0 gm NASAL DAILY [facility] Last Admin: 07/25/17 09:36 Dose: 2 spr Guaifenesin (Robitussin Sf) 200 mg PO Q4H PRN PRN Reason: Cough Last Admin: 07/26/17 06:15 Dose: 200 mg Lisinopril/HCTZ (Prinizide 20-25) 1 tab PO DAILY [facility] Last Admin: 07/25/17 09:36 Dose: 1 tab Methylprednisolone Sodium Succinate (Solu-Medrol) 20 mg IVP Q12HR [facility] Last Admin: 07/25/17 21:25 Dose: 20 mg Nicotine (Nicoderm Patch) 14 mg TD DAILY [facility] Last Admin: 07/25/17 09:37 Dose: 14 mg Nitroglycerin (Nitrostat) 0.4 mg PO Q5MIN PRN PRN Reason: Chest Pain Ondansetron HCl (Zofran Odt) 4 mg PO Q6H PRN PRN Reason: Nausea/Vomiting Ondansetron HCl (Zofran) 4 mg IVP Q6H PRN PRN Reason: Nausea/Vomiting Raloxifene HCl (Evista) 60 mg PO DAILY [facility] Last Admin: 07/25/17 09:57 Dose: 60 mg Sertraline HCl (Zoloft) 100 mg PO HS [facility] Last Admin: 07/25/17 21:25 Dose: 100 mg Simvastatin (Zocor) 40 mg PO HS [facility] Last Admin: 07/25/17 21:25 Dose: 40 mg Trazodone HCl (Desyrel) 150 mg PO HS [facility] Last Admin: 07/25/17 21:25 Dose: 150 mg Trospium (Trospium) 20 mg PO BID [facility] Last Admin: 07/25/17 21:25 Dose: 20 mg MAR Reviewed: Yes Vital Signs: Vital Signs Temp 97.7 F 07/26/17 04:20 Pulse 80 07/26/17 06:44 Resp 18 07/26/17 06:44 BP 141/76 H 07/26/17 04:20 Pulse Ox 93 L 07/26/17 04:20 Intake & Output 07/25/17 07/26/1707/26/18 18:59 06:59 18:59 Intake Total 1360 240 Output Total 100 100 Balance 1260 140 Weight 163 lb 6.4 oz Intake: Oral 1360 240 Output: Urine 100 100 Other: Voiding Method Toilet Toilet # Measured Voids 2 # Urine Diapers 2 Progress Note: Exam - Physical Exam Constitutional: NAD HEENT: PERRLA, moist MMs Neck: no nodes Cardiovascular: RRR Respiratory: clear to auscultation bilaterally Gastrointestinal: soft, non-tender Musculoskeletal: no edema Neurological: non-focal, normal sensation, moves all 4 limbs Lymphatic: no nodes Psychiatric: normal affect, A&O x 3 Skin: no rash Progress Note: Data - Labs Result Diagrams: 07/26/17 04:24 07/26/17 04:24 Lab results: Laboratory Results 07/24/17 07/25/17 07/25/17 19:26 04:26 04:26 WBC 13.1 H RBC 4.67 Hgb 14.9 Hct 43.9 MCV 94.0 MCH 31.9 H MCHC 33.9 RDW 12.6 Plt Count 249 MPV 9.0 Neutrophils % 77.4 H Lymphocytes % 16.8 L Monocytes % 5.3 Eosinophils % 0.1 Basophils % 0.4 Neutrophils # 10.2 H Lymphocytes # 2.2 Monocytes # 0.7 H Eosinophils # 0.0 Basophils # 0.1 Sodium 137 136 Potassium 3.5 3.6 Chloride 99 102 Carbon Dioxide 25 23 Anion Gap 17 15 BUN 37 H 36 H Creatinine 0.84 0.75 Estimated GFR (MDRD) 69 79 Glucose 147 H 141 H POC Glucose Calcium 10.6 H 10.1 Magnesium 1.9 2.0 07/25/17 07/25/17 07/25/17 06:35 11:29 17:35 WBC RBC Hgb Hct MCV MCH MCHC RDW Plt Count MPV Neutrophils % Lymphocytes % Monocytes % Eosinophils % Basophils % Neutrophils # Lymphocytes # Monocytes # Eosinophils # Basophils # Sodium Potassium Chloride Carbon Dioxide Anion Gap BUN Creatinine Estimated GFR (MDRD) Glucose POC Glucose 153 H 141 H 95 Calcium Magnesium 07/26/17 07/26/17 04:24 04:24 WBC 12.4 H RBC 4.59 Hgb 14.5 Hct 43.4 MCV 94.5 MCH 31.5 H MCHC 33.4 RDW 12.6 Plt Count 262 MPV 8.5 Neutrophils % 70.4 Lymphocytes % 22.8 Monocytes % 6.2 Eosinophils % 0.2 Basophils % 0.4 Neutrophils # 8.7 H Lymphocytes # 2.8 Monocytes # 0.8 H Eosinophils # 0.0 Basophils # 0.0 Sodium 138 Potassium 4.0 Chloride 100 Carbon Dioxide 28 Anion Gap 14 BUN 38 H Creatinine 0.76 Estimated GFR (MDRD) 77 Glucose 122 H POC Glucose Calcium 9.5 Magnesium 1.9 Progress Note: A/P - Problems (1) COPD with acute exacerbation Current Visit: Yes Status: Acute Code(s): J44.1 - CHRONIC OBSTRUCTIVE PULMONARY DISEASE W (ACUTE) EXACERBATION - Plan Plan: should be ok for discharge she has severe COPD with FEV1 of 42% predicted Smoking cessation has been advised Would recommend Anoro Ellipta 1 puff daily at discharge Duoneb every 4hrs prn steroid taper home O2 testing on day of discharge
--- NOTE | 2017-07-26 09:57 | PDOC.CTH ---
<Kelin Doran - Last Filed: 07/26/17 12:12> Cardiology Progress Note - Subjective The pt seen and examined. No overnight events. No cardiac complaints. She stated she would like to try stress test today - Objective Vital Signs Temp Pulse Resp BP Pulse Ox 07/26/17 06:44 80 18 07/26/17 06:41 80 18 07/26/17 04:20 97.7 F 77 18 141/76 H 93 L 07/26/17 02:23 83 16 95 07/25/17 22:24 83 16 96 Weight 163 lb 6.4 oz 07/25/17 07/26/17 07/27/17 06:59 06:59 06:59 Intake Total 1378 1600 Output Total 400 200 Balance 978 1400 - Physical Examination General/Neuro: alert & oriented x3 Neck: no JVD present Lungs: other: (diminished at bases) Heart: RRR Abdomen: soft Extremities: other: (No edema) - Telemetry Telemetry Rhythm: SR 70-80s - Labs Result Diagrams: 07/26/17 04:24 07/26/17 04:24 Troponin/CKMB CK-MB (CK-2) 3.6 ng/mL (0-6.6) 07/22/17 08:21 Troponin I 0.753 ng/mL (< 0.028) H* 07/22/17 14:21 - Assessment/Plan 1. Acute respiratory failure with hypoxia 2ndary to COPD exacerbation - stable with steroid and breathing tx; managed by Optometrist; 2. Chronic diastolic HF - Echo on 07/22/17 showed EF 60-65%, grade I diastolic dysfunction, and mild MR; stable; cont. monitor 3. HTN - stable with current medication; 4. Hyperlipidemia - on Statin 5. Abn. Juan - cont. monitor on tele; NM stress test today. Tobacco abuse - Smoking Cessation Education given to the pt and family MAR reviewed * From cardiac standpoint, the pt can be discharged. The pt will have Stress test as outpt at Dr Rosado' office. Review of Systems - Review of Systems Constitutional: reports: no symptoms reported EENTM: reports: no symptoms reported Respiratory: reports: see HPI Cardiac (ROS): reports: no symptoms reported ABD/GI: reports: no symptoms reported : reports: no symptoms reported Musculoskeletal: reports: no symptoms reported Skin: reports: no symptoms reported <Radha Rosado - Last Filed: 07/26/17 18:32> Cardiology Progress Note - Objective Vital Signs Pulse Resp BP Pulse Ox 07/26/17 14:11 82 16 07/26/17 12:14 71 119/66 07/26/17 10:28 87 18 93 L 07/26/17 06:44 80 18 07/26/17 06:41 80 18 Weight 163 lb 6.4 oz 07/25/17 07/26/17 07/27/17 06:59 06:59 06:59 Intake Total 1378 1600 Output Total 400 200 Balance 978 1400 - Labs Result Diagrams: 07/26/17 04:24 07/26/17 04:24 Troponin/CKMB CK-MB (CK-2) 3.6 ng/mL (0-6.6) 07/22/17 08:21 Troponin I 0.753 ng/mL (< 0.028) H* 07/22/17 14:21 - Assessment/Plan Pt. seen and eval. by me. I agree with the A/P by the PARQU[employer]ER. She will f/u with me for an outpt. stress test.
[2017-07-26] MEDS: Acetaminophen 325 MG TAB PO PRN (10:58)
[2017-07-26] MEDS: Aspirin 325 MG TAB PO SCH (11:05)
[2017-07-26] MEDS: Cefdinir 300 MG CAP PO SCH (11:06)
[2017-07-26] MEDS: Carvedilol 3.125 MG TAB PO SCH (11:06)
[2017-07-26] MEDS: Docusate 100 MG CAP PO SCH (11:07)
[2017-07-26] MEDS: Enoxaparin Sodium 40 MG/0.4 ML SYRINGE SC SCH (11:07)
[2017-07-26] MEDS: TROSPIUM 20 MG TABLET PO SCH (11:15)
[2017-07-26] MEDS: Fluticasone Propionate Nasal Spray 16 gm Bottle NASAL SCH (11:15)
[2017-07-26] MEDS: Lisinopril/Hydrochlorothiazide 20/25 mg Tablet PO SCH (12:14)
[2017-07-26] MEDS: Nicotine 14 MG PATCH TD SCH (12:14)
--- NOTE | 2017-07-26 15:50 | PFT ---
PATIENT HISTORY: HEIGHT: 61 INCHES WEIGHT:163 SMOKER: YES HOW LON YEARS PACKS PER DAY: 1 PRODUCTIVE COUGH: LUNG DISEASE: PHYSICIAN INTERPRETATION FINAL REPORT: Severe reduction in expiratory flows. The vital capacity is present. Following bronchodilator therapy, there is no further improvement in flows. IMPRESSION: Obstructive ventilator impairment. Guest Services Agent: EDIN Balance Bridge Assembler: EDIN JONAS
[2017-07-27 14:39] VITALS: BP 122/65; TEMP 98.6
--- NOTE | 2017-07-27 15:24 | DIS ---
DATE OF ADMISSION: 07/22/2017 DATE OF DISCHARGE: 07/26/2017 PRIMARY CARE PHYSICIAN: Listed as Terrence Thompson D.O. DISCHARGE DIAGNOSES: 1. Demand ischemia. 2. Chronic diastolic congestive heart failure. 3. Acute hypoxemic respiratory failure. 4. Acute exacerbation of chronic obstructive pulmonary disease. 5. Essential hypertension. CONSULTATIONS: 1. Cardiology, Dr. Kobe Rosado on 07/23/2017. 2. Pulmonary Critical Care, Dr. Prasanth Bains, 07/23/2017. PROCEDURES: 1. Pulmonary function testing 07/25/2017 showed severe reduction in expiratory flows. Preserved vit al capacity, no improvement with bronchodilator therapy consistent with obstructive ventilator impair ment. 2. Echocardiogram done 07/23/2017 that showed EF 60-65%, diastolic dysfunction, normal right ventric ular size and function, normal LA, normal RA, mild MR and mild TR. HOSPITAL COURSE: Ms. Spring is a 62-year-old female who presented to the emergency department on 07/22 with headache and jaw pain. She has known history of hypertension and chronic smoking. She wa s found to have a normal EKG, some ST segment changes that were nonspecific and a troponin of 0.414. Dr. Rosado was consulted from the ER and we were called to admit. HOSPITAL COURSE: The patient was seen and examined by Dr. Hull, serial cardiac biomarkers, 2D echoc ardiogram were ordered and awaited Dr. Rosado' opinion. She was given nicotine patch and placed in an inpatient status. Overnight, the patient did well. The patient was seen by Kelin Doran that evening and felt it was du e to demand ischemia. By the following morning, the patient was seen by Dr. Kobe Rsoado who felt again fairly continued cough ing and some tachycardia and may very well be demand ischemia and may need outpatient further evaluat ion. From our standpoint, the patient was still feeling tight with inspiration and having some short ness of breath on exertion and family requested pulmonary consultation due to her history of recent d iagnosis of COPD. The patient was seen by Dr. Bains later in the day. He recommended starting IV steroids, nebulizer treatments, Brovana and Pulmicort and continue antibiotics. He wanted to get pulmonary function gaby ting when she was able to have it done. On 07/24/2017 took the case over, patient is breathing better. No fevers or chills. When we get up and walk around and was allowed to do so. Continue recommendations per Dr. Bains for the day and t he patient was overall improving. About 1:30, she was almost back to baseline. She is having less and clear sputum. She had nuclear s tress and PFTs that were planned and PFT results were reviewed. Per Cardiology recommendations, the nuclear test was delayed and to be done as an outpatient. On 07/26/2017, she was back to baseline, f eeling better. She was discharged home with outpatient followup and outpatient stress testing. PHYSICAL EXAMINATION: Patient was seen and examined on the day of discharge. DISCHARGE PLAN AND DISPOSITION: Discussed with the patient face to face at the bedside. DISCHARGE ACTIVITY: Per cardiopulmonary limits. DISCHARGE DIET: Heart healthy diet recommended. Recommended cessation of smoking. Patient was discharged with nebulizer treatments. DISCHARGE MEDICATIONS: 1. Albuterol sulfate 3 mL nebulizer every 2 hours as needed for shortness of breath or wheezing. 2. Aspirin 325 mg daily. 3. Carvedilol 3.125 mg p.o. b.i.d. 4. Omnicef 300 mg p.o. b.i.d. 5. Guaifenesin ER 1200 mg p.o. b.i.d. 5. DuoNeb 3 mL q.4 hours scheduled. 6. Nebulizer and accessories prescribed. 7. Nicotine patch 14 mg transdermal daily. 8. Prednisone 40 mg p.o. q.a.m. to decrease by 10 mg every third day until tapered off. 9. Anoro Ellipta one inhalation daily. HOME MEDICATIONS CONTINUED: 1. Lisinopril/hydrochlorothiazide 20/25 one tablet daily. 2. Docusate 100 mg daily as needed for constipation. 3. Cholecalciferol 5000 units daily. 4. Minocycline 100 mg tablets 0.5-1 tablet oral daily. 5. Xanax 0.5 mg to 1 mg p.o. b.i.d. p.r.n. 6. VESIcare 10 mg daily. 7. Zocor 80 mg p.o. at bedtime. 8. Raloxifene 60 mg p.o. daily. 9. Trazodone 150 mg p.o. at bedtime. 10. Zoloft 100 mg p.o. daily. 11. Ibuprofen 800 mg every 8 hours as needed for pain. DISCHARGE CONDITION: Stable. DISPOSITION: Being discharged home via private vehicle. FOLLOWUP APPOINTMENTS: 1. Primary care physician within a week. 2. Dr. Bains in 1-2 weeks.
--- NOTE | 2017-07-29 12:21 | EKG ---
Test Reason : SOB Blood Pressure : / mmHG Vent. Rate : 091 BPM Atrial Rate : 091 BPM P-R Int : 144 ms QRS Dur : 068 ms QT Int : 368 ms P-R-T Axes : 067 036 053 degrees QTc Int : 452 ms Normal sinus rhythm Nonspecific ST abnormality Abnormal ECG Confirmed by LILIYA Kong, PATTI ([id number]), fashion editor GIANCARLO PLUNKETT ([id number]) on 07/29/2017 12:20:27 PM Referred By: LILIYA Confirmed By:PATTI LOVELL M.D.
--- NOTE | 2017-07-30 16:36 | EKG ---
Test Reason : Blood Pressure : / mmHG Vent. Rate : 080 BPM Atrial Rate : 080 BPM P-R Int : 164 ms QRS Dur : 070 ms QT Int : 370 ms P-R-T Axes : 065 013 052 degrees QTc Int : 426 ms Normal sinus rhythm Nonspecific ST abnormality Abnormal ECG No previous ECGs available Confirmed by Harmony LOPEZ ([id number]) on 07/30/2017 4:36:01 PM Referred By: MELVIN Confirmed By:Harmony LOPEZ
== END 2017-07-26 18:56 | disposition home or self-care (01) | DRG 190 ==
LOC: ERS 07:29 → ERHOLD 11:35 → 2NO 14:58
PROVIDERS: ADMIT Family Medicine; ATTEND Family Medicine
DX: J44.1 Chronic obstructive pulmonary disease with (acute) exacerbation (principal); J96.01 Acute respiratory failure with hypoxia; I50.32 Chronic diastolic (congestive) heart failure; I24.9 Acute ischemic heart disease, unspecified; I24.8 Other forms of acute ischemic heart disease; I11.0 Hypertensive heart disease with heart failure; R68.84 Jaw pain; F17.210 Nicotine dependence, cigarettes, uncomplicated; J01.10 Acute frontal sinusitis, unspecified; Z88.5 Allergy status to narcotic agent; Z88.0 Allergy status to penicillin; Z91.048 Other nonmedicinal substance allergy status; F41.9 Anxiety disorder, unspecified; E78.5 Hyperlipidemia, unspecified; M06.9 Rheumatoid arthritis, unspecified; Z87.898 Personal history of other specified conditions; N39.41 Urge incontinence; K21.9 Gastro-esophageal reflux disease without esophagitis; I34.0 Nonrheumatic mitral (valve) insufficiency; F32.9 Major depressive disorder, single episode, unspecified; F43.10 Post-traumatic stress disorder, unspecified
CPT/HCPCS: 36415; 36416; 51798; 71045; 80048; 80053; 80061; 81001; 82553; 83735; 83880; 84484; 85025; 85610; 88112; 93005; 93010; 93306; 94060; 94640; 94760; 96360; 96372; 99215; A4216; G0463; G8978-GP-CJ; G8979-GP-CI; G8987-GO-CI; G8988-GO-CI; G8989-GO-CI; J1650; J2920; J2930; J7620; J7626; S0028

== ENCOUNTER 2017-08-02 10:11 | Outpatient (CLI) | payer MEDICARE, OTHER, MEDICAID ==
[2017-08-02] MEDS ORDERED: Iopamidol 370 76% 100 ML VIAL ONE (13:11)
== END 2017-08-02 10:12 | disposition home or self-care (01) ==
LOC: BICCT 10:11
PROVIDERS: ATTEND Urology
DX: R35.0 Frequency of micturition (principal); K76.0 Fatty (change of) liver, not elsewhere classified; I70.90 Unspecified atherosclerosis; K57.90 Diverticulosis of intestine, part unspecified, without perforation or abscess without bleeding
CPT/HCPCS: 74178

== ENCOUNTER 2017-12-05 08:56 | Outpatient (CLI) | payer MEDICARE, MEDICAID, OTHER ==
--- NOTE | 2017-12-05 10:26 | CT ---
CT CHEST PULMONARY LUNG SCAN: Date: 12/05/17 HISTORY: Z12.12, lung cancer screening. COMPARISON: None. FINDINGS: Lung-RADS Specific (Lung-RADS): No abnormal suspicious lung nodules requiring close follow-up per Paty ng-RADS criteria. Potentially Significant Incidentals (Lung-RADS Category S): No new or unknown potentially significan t incidental findings requiring additional urgent evaluation. Pulmonary Incidentals: Extensive central lobular and paraseptal emphysema predominantly in the lung apices. Small, sub-3.0 mm, pulmonary nodules. Other Incidentals: Thyroid is unremarkable. Mild vascular calcifications. No pericardial effusion. S plenule is present. No thoracic spine compression fracture. IMPRESSION: 1. Lung-RADS Category 2: Benign findings or behavior. Follow-up CT of the chest in 12 months is rec ommended. 2. Lung-RADS Category S: Negative. 3. Other incidental findings as described above. POS: [facility]
== END 2017-12-05 08:57 | disposition home or self-care (01) ==
LOC: CT 08:56
PROVIDERS: ATTEND Internal Medicine Critical Care Medicine
DX: Z12.2 Encounter for screening for malignant neoplasm of respiratory organs (principal)
CPT/HCPCS: G0297

== ENCOUNTER 2019-03-27 07:57 | Outpatient (CLI) | payer MEDICARE, MEDICAID, OTHER ==
--- NOTE | 2019-03-27 10:51 | CT ---
CT CHEST WITHOUT CONTRAST: 03/27/2019 PROVIDED CLINICAL HISTORY: History of tobacco abuse. Low dose screening. COMPARISON: 12/05/2017 FINDINGS: The heart, pericardium and great vessels are suboptimally evaluated in the absence of IV contrast mat erial. IMPRESSION: Vascular calcification, including coronary calcium is noted. There is lipomatous hypertrophy of the i ntra-atrial septum. There is no evidence for thoracic lymph node enlargement with limitations due to lack of IV contrast material. No significant pulmonary nodules evident. No evidence for consolidation or significant ground glass o pacity. Emphysematous changes are redemonstrated. The airway appears patent and of normal caliber. No pleural fluid, pleural thickening or pneumothorax apparent. The visualized portions of the upper abdomen demonstrate no significant abnormality. The osseous structures demonstrate no concerning lytic or blastic lesions. IMPRESSION: 1. Lung-RADS category 1 - negative. Continue annual screening. 2. Lung-RADS category S - vascular calcification including coronary calcium and emphysema. POS: [facility]
== END 2019-03-27 07:58 | disposition home or self-care (01) ==
LOC: CT 07:57
PROVIDERS: ATTEND Family Medicine
DX: Z12.2 Encounter for screening for malignant neoplasm of respiratory organs (principal); F17.210 Nicotine dependence, cigarettes, uncomplicated; J43.9 Emphysema, unspecified
CPT/HCPCS: G0297

== ENCOUNTER 2019-04-17 07:49 | Outpatient (CLI) | payer MEDICARE, MEDICAID, OTHER ==
--- NOTE | 2019-04-17 10:55 | BD ---
BONE DENSITOMETRY USING DEXA: Date: 04/17/19 HISTORY: Postmenopausal screening for osteoporosis. Asymptomatic menopausal state. FINDINGS: Lumbar Spine: BMD (g/cm2) L1 0.764 T-Score: -2.1 Z-Score: -0.6 L2 0.865 T-Score: -1.5 Z-Score: 0.2 L3 0.772 T-Score: -2.8 Z-Score: -1.1 L4 0.650 T-Score: -2.7 Z-Score: -2.0 L1-L4 0.757 T-Score: -2,6 Z-Score: -1.0 Femoral Neck: 0.593 T-Score: -2.3 Z-Score: -0.9 Total Femur: 0.726 T-Score: -1.8 Z-Score: -0.6 IMPRESSION: Osteoporosis. POS: [facility]
--- NOTE | 2019-05-01 08:44 | MMO ---
Bilateral MAMMO Bilat Screen [facility]. CLINICAL HISTORY: Patient is 63 years old and is seen for screening. The patient has no family history of breast cancer. The patient has a history of malignant (generic) in the right breast at age 50. The patient has a history of right Lumpectomy at age 50 - malignant. VIEWS: The views performed were: bilateral craniocaudal with tomosynthesis and bilateral mediolateral oblique with tomosynthesis. FILMS COMPARED: The present examination has been compared to prior imaging studies performed at [facility] on 01/26/2017 and 01/15/2018. This study has been interpreted with the assistance of computer-aided detection. MAMMOGRAM FINDINGS: There are scattered fibroglandular densities. Finding 1: There are stable post operative changes seen in the right breast. Finding 2: There are stable benign appearing calcifications seen in both breasts. There are no suspicious masses, suspicious calcifications, or new areas of architectural distortion. IMPRESSION: THERE IS NO MAMMOGRAPHIC EVIDENCE OF MALIGNANCY. A ROUTINE FOLLOW-UP MAMMOGRAM IN 1 YEAR IS RECOMMENDED. THE RESULTS OF THIS EXAM WERE SENT TO THE PATIENT. ACR BI-RADS Category 2 - Benign finding MAMMOGRAPHY NOTE: 1. A negative mammogram report should not delay a biopsy if a dominant of clinically suspicious mass is present. 2. Approximately 10% to 15% of breast cancers are not detected by mammography. 3. Adenosis and dense breasts may obscure an underlying neoplasm. Reported by: DERIAN SALES MD Electonically Signed: [id number]
== END 2019-04-17 07:50 | disposition home or self-care (01) ==
LOC: BICMAMMO 07:49
PROVIDERS: ATTEND Family Medicine
DX: Z12.31 Encounter for screening mammogram for malignant neoplasm of breast (principal); Z13.820 Encounter for screening for osteoporosis; Z78.0 Asymptomatic menopausal state; Z85.3 Personal history of malignant neoplasm of breast; M81.0 Age-related osteoporosis without current pathological fracture
CPT/HCPCS: 77063; 77067; 77080

== ENCOUNTER 2020-04-21 08:51 | Outpatient (CLI) | payer MEDICARE, OTHER ==
--- NOTE | 2020-04-21 09:17 | CT ---
EXAM: CT chest without contrast PROVIDED CLINICAL HISTORY: Personal history of nicotine dependence, low dose screening COMPARISON: 03/27/2019 FINDINGS: The heart, pericardium and great vessels are suboptimally evaluated in the absence of IV contrast mat erial. Vascular calcification including coronary calcium is redemonstrated. There is lipomatous hypertrophy of the interatrial septum. There is no evidence for thoracic lymph node enlargement, with limitations due to lack of IV contrast material. The airway appears patent and of normal caliber. The lungs are free of suspicious opacity. Emphysematous changes are again seen. There is no pleural fluid or pneumothorax apparent. The visualized portions of the upper abdomen demonstrate an unremarkable unenhanced CT appearance. The osseous structures demonstrate no concerning lytic or blastic lesions. IMPRESSION: Lung RADS category 1-negative. Continue annual screening.
== END 2020-04-21 08:52 | disposition home or self-care (01) ==
LOC: BICCT 08:51
PROVIDERS: ATTEND Family Medicine
DX: Z12.2 Encounter for screening for malignant neoplasm of respiratory organs (principal); F17.210 Nicotine dependence, cigarettes, uncomplicated
CPT/HCPCS: G0297

== ENCOUNTER 2020-09-05 17:16 | Emergency (ER) | payer MEDICARE, OTHER ==
[2020-09-05] MEDS ORDERED: Ketorolac Tromethamine 30 MG/ML VIAL ONE (19:20)
[2020-09-05] MEDS ORDERED: HYDROcodone/Acetaminophen 7.5/325 mg Tablet ONE (19:20)
== END 2020-09-05 20:17 | disposition home or self-care (01) ==
LOC: ERS 17:16
DX: M25.551 Pain in right hip (principal); E78.5 Hyperlipidemia, unspecified; I10 Essential (primary) hypertension; J44.9 Chronic obstructive pulmonary disease, unspecified; F17.210 Nicotine dependence, cigarettes, uncomplicated; Z79.51 Long term (current) use of inhaled steroids; Z79.899 Other long term (current) drug therapy
CPT/HCPCS: 96372; J1885

== ENCOUNTER 2021-05-17 14:45 | Outpatient (CLI) | payer MEDICARE, OTHER | END 2021-05-17 14:46 | disposition home or self-care (01) | LOC: BICCT 14:45 | PROVIDERS: ATTEND Family Medicine | DX: Z12.2 Encounter for screening for malignant neoplasm of respiratory organs (principal); F17.210 Nicotine dependence, cigarettes, uncomplicated; J43.8 Other emphysema | CPT/HCPCS: 71271 ==

== ENCOUNTER 2023-08-25 14:58 | Outpatient (CLI) | payer MEDICARE, OTHER | END 2023-08-25 14:59 | disposition home or self-care (01) | LOC: BICMAMMO 14:58 | PROVIDERS: ATTEND Family Medicine | DX: Z13.820 Encounter for screening for osteoporosis (principal); Z78.0 Asymptomatic menopausal state; M81.0 Age-related osteoporosis without current pathological fracture; M85.851 Other specified disorders of bone density and structure, right thigh | CPT/HCPCS: 77080 ==